=== PATIENT | male | born 1940 | race Caucasian/White ===

== ENCOUNTER 2016-10-20 05:54 | Inpatient (IN) | payer OTHER ==
[2016-10-20] MEDS ORDERED: ceFAZolin 2 GM/DEXTROSE 100 ML IV ONE (06:00)
[2016-10-20] MEDS ORDERED: BUPIVACAINE/EPI 0.25% 30 ML SDV ONE (06:43)
[2016-10-20] MEDS ORDERED: BACITRACIN 50,000 UNITS/10 ML SYR IRR ONE (06:43)
[2016-10-20] MEDS ORDERED: THROMBIN (RECOMBINANT) 20,000 UNIT VIAL TP ONE (06:43)
[2016-10-20] MEDS ORDERED: HYDROmorphONE/DILAUDID 2 MG/ML INJ ONE (07:32)
[2016-10-20] MEDS ORDERED: PROPOFOL 200 MG/20 ML VIAL ONE (07:32)
[2016-10-20] MEDS ORDERED: SUCCINYLCHOLINE CHLORIDE*ANESTHESIA ONLY*200 MG/10 ML SYR IVP ONE (07:35)
[2016-10-20] MEDS ORDERED: LR 1,000 ML IV ONE (07:39)
[2016-10-20] MEDS ORDERED: LIDOCAINE 1% 5 ML SDV ID PRN (07:39)
[2016-10-20] MEDS ORDERED: SKIN ADHESIVE (DERMABOND) 1 EACH TP ONE ×3 (07:57→11:34)
[2016-10-20] MEDS ORDERED: PHENYLEPHRINE HCL 100 MCG/ML SYR ONE (08:01)
[2016-10-20] MEDS ORDERED: KETAMINE 100 MG/10 ML SYR IVP ONE (08:13)
[2016-10-20] MEDS ORDERED: LIDOCAINE 2% 5 ML SDV ONE (08:29)
[2016-10-20] MEDS ORDERED: ONDANSETRON 4 MG/2 ML VIAL ONE (09:17)
[2016-10-20] MEDS ORDERED: morphINE PF 5 MG/10 ML INJ ONE (09:32)
[2016-10-20] MEDS ORDERED: NON-FORMULARY NEW DRUG (Ranitidine Hcl [Zantac 75] 75 MG) PO PRN (11:54)
[2016-10-20] MEDS ORDERED: DIAZEPAM 10 MG/2 ML SYR IVP PRN (12:03)
[2016-10-20] MEDS ORDERED: MAGNESIUM HYDROXIDE 30 ML UDCUP PO PRN (12:03)
[2016-10-20] MEDS ORDERED: HYDROmorphONE/DILAUDID 1 MG/ML SYR IVP PRN (12:03)
[2016-10-20] MEDS ORDERED: PROMETHAZINE HCL 25 MG/ML INJ IVP PRN (12:03)
[2016-10-20] MEDS ORDERED: ONDANSETRON DISINTEGRATING 4 MG TAB PO PRN (12:03)
[2016-10-20] MEDS ORDERED: LACTULOSE 20 GM/30 ML UDCUP PO PRN (12:03)
[2016-10-20] MEDS ORDERED: POLYETHYLENE GLYCOL 3350 17 GM PKT PO PRN (12:03)
[2016-10-20] MEDS ORDERED: D50W 25 GM/50 ML SYR IVP PRN (12:03)
[2016-10-20] MEDS ORDERED: diphenhydrAMINE 25 MG CAP PO PRN (12:03)
[2016-10-20] MEDS ORDERED: ONDANSETRON 4 MG/2 ML VIAL IVP PRN (12:03)
--- NOTE | 2016-10-20 12:15 | POSTOPPROG ---
Post Op Note Date of Operation: 10/20/16 Surgeon: Esvin Cheung Manager Program: Cameron Walker PA-C Anesthesia: GET(General Endotracheal) Pre-op Diagnosis: lumbar scoliosis, degeneration, radiculopathy Post-op Diagnosis: same Indication: back pain, leg pain Procedure: L4-S1 TLIF and PSF with SCS removal Findings: Please see Dr Cheung's operative report Inf/Abcess present in the surg proc area at time of surgery?: No Depth: Organ Space EBL: 100-500 Complications: none Drains: Dominick Turk Specimen(s): SCS sent for gross pathology PA Addendum - Addendum .: S: Pt awake in PACU, denies pain O: Awake but sleepy NAD VSS MAEx4 Motor 5/5 BUE/BLE +LT Incision dressed A: 76 yo M s/p SCS removal and right sided L4-S1 TLIF with L4-S1 Posterior Fusion P: PT/OT Pain management Brace when OOB Blood sugar checks and sliding scale ordered Post op xrays pending Duramorph given Follow ALFONSO output LISA Jeffers in AM Call NS with any issues
--- NOTE | 2016-10-20 13:58 | GOP ---
DATE OF OPERATION: 10/20/2016 SURGEON: Esvin Cheung MD CONTROLLER REPAIRER AND TESTER: Chapis Walker PA-C. ANESTHESIA: General. PREOPERATIVE DIAGNOSIS: 1. Lumbar scoliosis. 2. Lumbar spondylosis, L4 through S1, with right lower extremity radiculopathy. 3. History of prior spinal cord stimulator placement. POSTOPERATIVE DIAGNOSIS: 1. Lumbar scoliosis. 2. Lumbar spondylosis, L4 through S1, with right lower extremity radiculopathy. 3. History of prior spinal cord stimulator placement. PROCEDURE PERFORMED: 1. Spinal cord stimulator generator and thoracic intraspinal percutaneous lead removal. 2. Posterior arthrodesis with approach to L4, L5, S1. 3. Posterolateral fusion with bilateral pedicle screw placement into L4, L5, S1 from the Howbuyra system. 4. Right-sided L4-L5 hemilaminotomy with mesial facetectomy, foraminotomy, nerve root decompression. 5. Right-sided L5-S1 hemilaminotomy with mesial facetectomy, foraminotomy, nerve root decompression. 6. Right-sided L4-L5 transforaminal lumbar interbody fusion with an 8 x 26 mm Capstone titanium coated PEEK cage with morselized autograft and allograft. 7. Right-sided L5-S1 transforaminal lumbar interbody fusion with an 8 x 26 mm Capstone titanium coated PEEK cage with morselized autograft and allograft. 8. Posterolateral fusion on the left between L4 and S1 with morselized autograft and allograft. 9. Use of intraoperative 3D Stealth navigation. 10. Use of intraoperative fluoroscopy, less than 1 hour physician time. 11. Use of neuromonitoring. 12. Use of operating microscope. 13. Injection of preservative-free intrathecal narcotics. FINDINGS: per imaging SPECIMENS: The spinal cord stimulator system was sent to Pathology for gross specimen analysis. ESTIMATED BLOOD LOSS: 200 mL. INDICATIONS: The patient is a 76-year-old gentleman with known history of lumbar spinal pain and radiculopathy for which he had a spinal cord stimulator placed. He no longer uses the spinal cord stimulator and he had evidence of lumbar scoliosis with severe lateral recess foraminal stenosis on the right at L4-5 and L5-S1. After failing nonoperative intervention and after discussion of the risks, benefits, and treatment alternatives, we decided to proceed forth with surgery as described above. DESCRIPTION OF PROCEDURE: The patient was brought to the operating theater and underwent general endotracheal anesthesia without complications. He had Venodynes, VIGNESH hose, and a Jeffers catheter placed. He was flipped prone onto the Dominick table and all bony prominences inspected and padded. The lower lumbar region was prepped and draped in the usual sterile surgical fashion. A time-out was completed per protocol, and the patient received antibiotics within 1 hour of incision, Ancef. Using lateral fluoroscopy and a spinal needle, we picked our entry point to the L4 through S1 levels, and this was marked in midline. We also marked out the left-sided implantable pulse generator for his spinal cord stimulator over the left buttock. All incisions were infiltrated with Marcaine with epinephrine. We first focused our attention to the implantable pulse generator, which we opened sharply with a scalpel blade. Using the monopolar, the incision was then taken down through subcutaneous tissues to the level of the implantable pulse generator, which was then identified and removed from its subcutaneous pocket. At this point, we cut the leads from the battery pack and passed the IPG off the field. We then irrigated this wound copiously with bacitracin irrigation and closed it in multiple layers using Vicryl sutures for the deep layers and Dermabond for the skin. We moved to the central midline lumbar incision, which then was taken down initially with a scalpel blade. Using the monopolar, the incision was then taken down through the lumbodorsal fascia and subperiosteal dissection continued. We immediately encountered the subcutaneous spinal cord stimulator implantable leads. We removed the soft tissue stay sutures for the leads and subsequently removed the percutaneous leads from the intraspinal canal as well as from the implantable pulse generator space and pulled them off and passed them all off the field. The entire system appeared to be intact. We sent this off to Pathology for gross specimen analysis. We continued with the subperiosteal dissection out to the transverse processes of L4, L5, and S1. Deep retractors were placed to maintain our exposure and we confirmed our level using lateral fluoroscopy. We attached the 3D Stealth navigation clamp to the spinous process of L5 and completed a 3D Stealth navigation spin. Using 3D Stealth navigation, we placed the airplane patrol pilot holes for the bilateral pedicle screws into L4, L5, and S1. All holes were manually palpated with no evidence of any cortical breaches. We then placed 6.5 mm screws bilaterally into L4, L5, S1 from the Medtronic Solera system. Another 3D Stealth navigation spin demonstrated the right L5 screw was somewhat medial. We removed this screw and palpated with no evidence of any cortical breaches. We then replaced the right-sided L5 screw. The microscope was brought into the field to assist with microscopic dissection and to maintain illumination and magnification. Using a combination of the bur tip on the drill, Kerrison punches, and Leksell rongeur, we completed our right- sided L4-L5 and right-sided L5-S1 hemilaminotomies with mesial facetectomies and foraminotomies. We moved up to L4-5 first, where we distracted the interspace and completed a right-sided L4-5 diskectomy. We prepared the cartilaginous endplates and measured the interbody space. We placed an 8 x 26 mm titanium coated PEEK cage filled with morselized autograft and allograft anteriorly toward the midline. We packed additional morselized autograft in the disk space for interbody fusion. We let down distraction. We then moved down to the right-sided L5-S1, where we completed a right-sided L5-S1 diskectomy. We prepared the cartilaginous endplates and measured the interbody space. We placed an 8 x 26 mm titanium coated PEEK cage filled with morselized autograft and allograft anteriorly toward the midline. We packed additional morselized autograft into the disk space for interbody fusion. At this point, we decorticated the bone on the left side between L4 and S1 and irrigated copiously with bacitracin irrigation. We placed 2 lordotic rods into the heads of the screws between L4 and S1 and secured them down with cap screws which were tightened per the power generation engineer's setting. We injected preservative- free intrathecal narcotics. We placed morselized autograft and allograft on the left side between L4 and S1 for the posterolateral fusion. We placed a drain in the subfascial space and closed the wound in multiple layers including Vicryl sutures for the deep layers and Dermabond for the skin. The patient's wounds were dressed sterilely. He was then flipped supine onto the transfer cart, where he was awakened, extubated, and taken to the recovery room in stable condition. There were no complications and no noted changes on neuromonitoring throughout the procedure. COMPLICATIONS: None. /[id number]/MODL MTDD
[2016-10-20] MEDS: NS W/ 20 KCl/L 1,000 ML IV SCH (15:12)
[2016-10-20] MEDS: INSULIN REGULAR HUMAN 100 UNIT/ML SC SCH ×2 (17:44→22:13)
[2016-10-20] MEDS ORDERED: FAMOTIDINE 20 MG/NACL 50 ML IV SCH (21:00)
[2016-10-20] MEDS: DOCUSATE SODIUM 100 MG CAP PO SCH (21:22)
[2016-10-20] MEDS: NORTRIPTYLINE HCL 50 MG CAP PO SCH (22:12)
[2016-10-20] MEDS: INSULIN GLARGINE 100 UNITS/ML SYRINGE SC SCH (22:13)
[2016-10-20] MEDS: FAMOTIDINE 20 MG TAB PO SCH (22:13)
[2016-10-20] MEDS: SENNOSIDES/DOCUSATE SODIUM TAB PO SCH (22:14)
[2016-10-20] MEDS: HYDROCODONE/APAP 5/325 TAB PO PRN (22:19)
[2016-10-21] MEDS: DIAZEPAM 5 MG TAB PO PRN ×2 (02:35→20:03)
[2016-10-21] MEDS: oxyCODONE IR 5 MG TAB PO PRN ×3 (02:36→13:57)
[2016-10-21] MEDS: NS W/ 20 KCl/L 1,000 ML IV SCH (02:40)
[2016-10-21 06:00] LABS: % IMMATURE GRANULYOCYTES 0.5 % (0.0-1.1); ABSOLUTE IMMATURE GRANULOCYTES 0.04 10^3/uL (0.00-0.10); ADD DIFF? NO; ADD MORPH? NO; ADD SCAN? NO; ATYPICAL LYMPHOCYTE FLAG 0 (0-99); FRAGMENT RBC FLAG 0 (0-99); HEMATOCRIT 32.3 % (40.0-51.0); HEMOGLOBIN 10.3 g/dL (13.7-17.5); LEFT SHIFT FLG 0 (0-99); LIPEMIA HEMOLYSIS FLAG 80 (0-99); MEAN CELL HEMOGLOBIN 30.8 pg (27.9-34.1); MEAN CELL HEMOGLOBIN CONCENTR. 31.9 g/dL (32.4-36.7); MEAN CELL VOLUME 96.7 fL (81.5-99.8); PLATELET CLUMPS FLAG 30 (0-99); PLATELET COUNT 176 10^3/uL (150-400); RED BLOOD CELL COUNT 3.34 10^6/uL (4.40-6.38); RED CELL DISTRIBUTION WIDTH 13.3 % (11.5-15.2)
[2016-10-21 06:10] LABS: ANION GAP 5 mEq/L (8-16); CALCIUM 7.9 mg/dL (8.5-10.4); CARBON DIOXIDE 25 mEq/l (22-31); CHLORIDE 105 mEq/L (97-110); CREATININE 1.1 mg/dL (0.7-1.3); GLOMERULAR FILTRATION RATE > 60; GLUCOSE 153 mg/dL (70-100); SODIUM 135 mEq/L (134-144)
[2016-10-21] MEDS: LISINOPRIL 2.5 MG TAB PO SCH (07:56)
[2016-10-21] MEDS: ATORVASTATIN CALCIUM 10 MG TAB PO SCH (07:56)
[2016-10-21] MEDS: ACETAMINOPHEN 325 MG TAB PO PRN ×2 (07:56→13:57)
[2016-10-21] MEDS: DOCUSATE SODIUM 100 MG CAP PO SCH ×2 (07:57→20:04)
[2016-10-21] MEDS: ATENOLOL 50 MG TAB PO SCH (07:57)
[2016-10-21] MEDS: ENOXAPARIN 40 MG/0.4 ML SYR SC SCH (07:57)
[2016-10-21] MEDS: FAMOTIDINE 20 MG TAB PO SCH ×2 (07:57→20:04)
--- NOTE | 2016-10-21 08:00 | NEUSURGPN ---
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 Eating/drinking and voiding. No caraballo/neck/chest/abd or gu complaints. No f/c/n/v/d. Objective: AAO x 3, PERRLA/EOMI, no droop CN 2-12 grossly intact +lt touch 5/5 BUE/BLE = CDI ALFONSO in place Neuro Check Frequency: per routine Urinary Catheter in Place: No Catheter Insertion Date: 10/20/16 - Physician Discussed Patient with DrLo: Jonatan Neurosurgery Physical Exam - Vitals, I&O, Labs I and O 10/20/16 10/21/16 10/22/16 05:59 05:59 05:59 Intake Total 3500 Output Total 1685 Balance 1815 Weight 81.647 kg Intake: Oral (ml) 600 IV Intake (ml) 2900 Output: Urine (ml) 1150 Catheter 1150 Estimated Blood Loss (ml) 200 Wound Drainage (ml) 335 Right Back Dominick Turk 335 Other: Number of Voids Catheter 1 Vital Signs Temp Pulse Resp BP Pulse Ox 37.0 C 94 14 115/60 96 10/21/16 07:29 10/21/16 07:29 10/21/16 07:29 10/21/16 07:29 10/21/16 07:29 Laboratory Results 10/21/16 05:25 10/21/16 05:25 ICD10 Worksheet Patient Problems: Problems Problem Status Onset Syncope Active
[2016-10-21] MEDS: SENNOSIDES/DOCUSATE SODIUM TAB PO SCH ×2 (08:56→20:03)
[2016-10-21] MEDS: INSULIN GLARGINE 100 UNITS/ML SYRINGE SC SCH ×2 (08:56→20:16)
[2016-10-21] MEDS: metFORMIN HCL 500 MG TAB PO SCH ×2 (08:56→18:00)
[2016-10-21] MEDS ORDERED: NON-FORMULARY NEW DRUG (Simvastatin [Zocor 20 Mg] 20 MG) PO SCH (09:00)
[2016-10-21] MEDS: INSULIN REGULAR HUMAN 100 UNIT/ML SC SCH ×4 (09:32→20:16)
[2016-10-21] MEDS: NORTRIPTYLINE HCL 50 MG CAP PO SCH (20:04)
[2016-10-22] MEDS: METHOCARBAMOL 750 MG TAB PO PRN (00:32)
[2016-10-22] MEDS: HYDROCODONE/APAP 5/325 TAB PO PRN ×3 (00:32→14:12)
--- NOTE | 2016-10-22 08:12 | NEUSURGPN ---
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 Eating/drinking and voiding. No f/c/n/v//d. No other new complaints or concerns. Objective: AAO x 3, PERRLA/EOMI, no droop CN 2-12 grossly intact +lt touch 5/5 BUE/BLE = CDI ALFONSO in place-to be removed Neuro Check Frequency: per routine Urinary Catheter in Place: No Catheter Insertion Date: 10/20/16 - Physician Discussed Patient with DrLo: Jonatan Neurosurgery Physical Exam - Vitals, I&O, Labs I and O 10/21/16 10/22/16 10/23/16 05:59 05:59 05:59 Intake Total 3500 350 Output Total 1685 1025 Balance 1815 -675 Weight 81.647 kg 81.647 kg Intake: Oral (ml) 600 350 IV Intake (ml) 2900 Output: Urine (ml) 1150 925 Catheter 1150 600 Toilet 325 Estimated Blood Loss (ml) 200 Wound Drainage (ml) 335 100 Right Back Dominick Turk 335 100 Other: Intake Quantity Yes Sufficient Output Comment Catheter straight cath by day shift, not charted Number of Voids Catheter 1 Bladder Scan Volume (ml) Catheter 500 Post Void Residual Scan Volume (ml) Toilet 178 Vital Signs Temp Pulse Resp BP Pulse Ox 36.7 C 105 H 18 122/59 H 94 10/22/16 00:29 10/22/16 00:29 10/22/16 00:29 10/22/16 00:29 10/22/16 00:29 Laboratory Results 10/21/16 05:25 10/21/16 05:25 ICD10 Worksheet Patient Problems: Problems Problem Status Onset Syncope Active
[2016-10-22] MEDS: ENOXAPARIN 40 MG/0.4 ML SYR SC SCH (08:20)
[2016-10-22] MEDS: ATORVASTATIN CALCIUM 10 MG TAB PO SCH (08:21)
[2016-10-22] MEDS: INSULIN REGULAR HUMAN 100 UNIT/ML SC SCH ×4 (08:21→20:55)
[2016-10-22] MEDS: metFORMIN HCL 500 MG TAB PO SCH ×2 (08:22→18:27)
[2016-10-22] MEDS: FAMOTIDINE 20 MG TAB PO SCH ×2 (08:22→20:54)
[2016-10-22] MEDS: SENNOSIDES/DOCUSATE SODIUM TAB PO SCH ×2 (08:22→20:56)
[2016-10-22] MEDS: DOCUSATE SODIUM 100 MG CAP PO SCH ×2 (08:22→20:54)
[2016-10-22] MEDS: ATENOLOL 50 MG TAB PO SCH (08:23)
[2016-10-22] MEDS: LISINOPRIL 2.5 MG TAB PO SCH (08:23)
[2016-10-22] MEDS: INSULIN GLARGINE 100 UNITS/ML SYRINGE SC SCH ×2 (08:37→20:54)
[2016-10-22] MEDS: ACETAMINOPHEN 325 MG TAB PO PRN (16:54)
[2016-10-22] MEDS: NORTRIPTYLINE HCL 50 MG CAP PO SCH (20:55)
[2016-10-22] MEDS: DIAZEPAM 5 MG TAB PO PRN (20:56)
[2016-10-23] MEDS: BISACODYL 10 MG SUPP PR PRN (06:10)
[2016-10-23] MEDS: INSULIN REGULAR HUMAN 100 UNIT/ML SC SCH ×4 (07:48→20:11)
[2016-10-23] MEDS: metFORMIN HCL 500 MG TAB PO SCH ×2 (08:42→18:47)
[2016-10-23] MEDS: ATORVASTATIN CALCIUM 10 MG TAB PO SCH (08:42)
[2016-10-23] MEDS: ATENOLOL 50 MG TAB PO SCH (08:42)
[2016-10-23] MEDS: SENNOSIDES/DOCUSATE SODIUM TAB PO SCH ×2 (08:43→20:10)
[2016-10-23] MEDS: FAMOTIDINE 20 MG TAB PO SCH ×2 (08:43→20:08)
[2016-10-23] MEDS: DOCUSATE SODIUM 100 MG CAP PO SCH ×2 (08:43→20:08)
[2016-10-23] MEDS: LISINOPRIL 2.5 MG TAB PO SCH (08:43)
[2016-10-23] MEDS: ENOXAPARIN 40 MG/0.4 ML SYR SC SCH (08:43)
[2016-10-23] MEDS: INSULIN GLARGINE 100 UNITS/ML SYRINGE SC SCH ×2 (08:44→20:08)
--- NOTE | 2016-10-23 11:11 | NEUSURGPN ---
Assessment/Plan: 76 yo M POD#3 s/p L4-S1 TLIF and PSF Plan: -increased confusion today. Hold Lucas and Valium. Getting CT head. checking labs. D/w Dr Cheung -urinary retention - straight cath/bladder scan. If persists, replace folry. -PT/OT-CPM -brace when OOB -post op xrays pending -ALFONSO drain was removed -Dispo: hold dc until confusion improves -call with any questions or concerns -D/w Dr Cheung Subjective: Pt resting in bed, c/o back pain. Objective: Awake and alert Difficulty hearing MAEx4 Follows all commands Motor 5/5 BLE +LT Incision dressed Urinary Catheter in Place: No Catheter Insertion Date: 10/20/16 - Physician Discussed Patient with : Jonatan Neurosurgery Physical Exam - Vitals, I&O, Labs I and O 10/22/16 10/23/16 10/24/16 05:59 05:59 05:59 Intake Total 350 100 Output Total 1025 450 Balance -675 100 -450 Weight 81.647 kg Intake: Oral (ml) 350 100 Output: Urine (ml) 925 450 Catheter 600 Toilet 325 450 Wound Drainage (ml) 100 Right Back Dominick Turk 100 Other: Intake Quantity Yes Yes Sufficient Output Comment Catheter straight cath by day shift, not charted Number of Voids Toilet 1 1 Bladder Scan Volume (ml) Catheter 500 Toilet 859 Post Void Residual Scan Volume (ml) Toilet 178 Vital Signs Temp Pulse Resp BP Pulse Ox 36.6 C 106 H 16 124/65 H 95 10/23/16 07:28 10/23/16 07:28 10/23/16 07:28 10/23/16 07:28 10/23/16 07:28 Laboratory Results 10/21/16 05:25 10/21/16 05:25 ICD10 Worksheet Patient Problems: Problems Problem Status Onset Syncope Active
[2016-10-23 11:56] LABS: COLOR YELLOW; LEUKOCYTE ESTERASE,URINE NEGATIVE (NEGATIVE); NITRITE,URINE POSITIVE (NEGATIVE)
[2016-10-23 12:05] LABS: RBC,URINE NONE SEEN /hpf (0-3)
[2016-10-23 12:43] LABS: HEMOGLOBIN 10.8 g/dL (13.7-17.5); MEAN CELL HEMOGLOBIN 31.6 pg (27.9-34.1); MEAN CELL HEMOGLOBIN CONCENTR. 33.8 g/dL (32.4-36.7); MEAN CELL VOLUME 93.6 fL (81.5-99.8); RED BLOOD CELL COUNT 3.42 10^6/uL (4.40-6.38)
[2016-10-23 13:51] LABS: ANION GAP 8 mEq/L (8-16); CALCIUM 8.7 mg/dL (8.5-10.4); CARBON DIOXIDE 24 mEq/l (22-31); CHLORIDE 100 mEq/L (97-110); CREATININE 1.1 mg/dL (0.7-1.3); GLOMERULAR FILTRATION RATE > 60; GLUCOSE 139 mg/dL (70-100); POTASSIUM 4.7 mEq/L (3.5-5.2); SODIUM 132 mEq/L (134-144)
--- NOTE | 2016-10-23 17:02 | PDGENHP ---
History and Physical History and Physical: HISTORY AND PHYSICAL CC: I am asked by Dr. Jabari Newton to evaluate and assist in the care of this patient with Postoperative confusion HISTORY: the patient himself at this point is quite disoriented and delusional and unable really to focus on the questions I am asking him, he really in fact does not know where he is and has no idea that he has had a surgery for that we are here for medical reasons. He denies however feeling uncomfortable in any way. I am really unable to get any other specific medical history from the patient. Patient's is at the bedside. She has been here all day with him. She says that he is quite disoriented has no idea where he is, yells and screams at her in the nurses which is quite unusual for him, has not eaten anything and will not consider eating anything, pulls at all the medical devices attached to him constantly, tries to get out of bed. He apparently has had trouble sleeping last couple nights and has been given some benzodiazepine. The states that he has never had an episode like this in the past. He has had 2 prior minor surgeries including a toe surgery and elected remain on surgery neither of which had long anesthesia neither which had any confusion at all afterwards. At home she says he has occasional word-finding difficulty but really no other memory or confusion issues. There is no history of mental health disorder and no history of head injury. He has not had any strokes and does not have Parkinson's disease or any other tremor related illness. aside from his back problems he was healthy prior to this illness with no fevers or other infectious symptoms. ROS: A comprehensive 10 system review revealed no other significant findings But is severely compromised by the patient's confusion PAST MEDICAL HISTORY: lumbar spine disease with chronic pain and previous lumbar implant Diabetes Hypertension Hyperlipidemia FAMILY MEDICAL HISTORY: no significant dementia is or mental health illnesses SOCIAL HISTORY: and lives with his , does not have any significant alcohol use or tobacco He is originally from [place] but has been in this country for many years. MEDICATIONS: The patients list has been reconciled by our clinical pharmacist in the EMR. I have reviewed the list and ordered appropriate medicines. PHYSICAL EXAMINATION: Vital Signs: He has a temperature 37.8degrees this afternoon and temperature of 37.9degrees last evening otherwise he has had normal temperatures. His vital signs are otherwise normal. Examination: General: alert, And interacts reasonably well, but is clearly severely disoriented. He has absolutely no idea where he is does not recall that he has had a surgery. He is not able to recognize that I am a physician. Does recognize his but will not tell me her name or his name. He has no idea what day month or year it is. He is unable to keep focus on a conversation. During my examination he pulls at his blankets and clothes, his IV tubing, his oxygen tubing. He does not have tremor, does not appear to be hallucinating that I can tell. For all of this he is reasonably relaxed. He does for seem fairly suspicious about my visit with him however. He has normal speech/language , normal wringer and setter, no focal weakness. The rest of the neurologic exam is difficult due to his inability to participate Skin: warm, dry, good color, no rash HEENT: normal Neck: no mass or jvd Resps: relaxed Lungs: clear breath sounds though he will not take a deep breath for me Heart: regular, no murmur Abdomen: soft, nondistended, nontender, +BS, no mass Upper Extremities: normal Lower Extremities: no edema, warm No Bleeding or bruising IV site: looks normal LABORATORY DATA: white blood cell count is a significantly increased today compared to 2 days ago with predominance of neutrophils Sodium is slightly low at 132 the rest of the basic metabolic panel unremarkable ; his sugars have been reasonable range so far RADIOLOGY STUDIES: there are no chest x-ray studies done so far here Head CT scan is done that today showing on my review of the images atrophy but nothing acute ASSESSMENT: - POSTOPERATIVE DELIRIUM, MULTIFACTORIAL ETIOLOGY - LOW-GRADE FEVER UNCERTAIN ETIOLOGY, LIKELY PRIMARILY DUE TO ATELECTASIS, RECUMBENCY, AND OTHER ISSUES RELATED TO HIS SURGERY BUT WILL WATCH FOR ANY SIGNS OF INFECTION -DIABETES MELLITUS WITH GOOD CONTROL OVERALL SO FAR -STATUS POST COMPLEX LUMBAR SPINE SURGERY, WITH NO OTHER COMPLICATIONS AT THIS POINT In terms of medications he has had really not much more pain medicine here than he typically got at home prior to his surgery. He has been getting some benzodiazepines at night and I think this is probably a contributing factor. Other factors include constipation, lack of oral intake, anesthesia effects, low -grade fever, unfamiliar environment and people, etc PLANS: -avoid sedating medicines as able -I will discontinue his benzodiazepines at this point I would recommend not using those -I have talked to his in a nursing staff to encourage food intake, mobilization, keeping the current all open during the daytime, making sure we maintain good pain management -Bowel regimen will be started as he has had no bowel movement here so far that I can tell per his -I will follow his electrolytes closely but so far this does not appear to be much of an issue. -His urinalysis looks good I will check a chest x-ray to make sure there is nothing there -If he has more significant fevers or if they persist will get blood cultures though my suspicion for significant infection at this point is low - I will continue to follow his blood sugars here, they have been in good range so far I have reviewed the patient's past medical records as part of this assessment, including
[2016-10-23] MEDS: NORTRIPTYLINE HCL 50 MG CAP PO SCH (20:09)
[2016-10-23] MEDS: MELATONIN 3 MG TAB PO SCH (20:09)
[2016-10-23] MEDS: ACETAMINOPHEN 325 MG TAB PO PRN (20:16)
[2016-10-24] MEDS: BISACODYL 10 MG SUPP PR PRN (05:41)
[2016-10-24] MEDS: INSULIN GLARGINE 100 UNITS/ML SYRINGE SC SCH ×2 (08:20→21:12)
[2016-10-24] MEDS: ENOXAPARIN 40 MG/0.4 ML SYR SC SCH (08:20)
[2016-10-24] MEDS: DOCUSATE SODIUM 100 MG CAP PO SCH ×2 (08:20→21:11)
[2016-10-24] MEDS: SENNOSIDES/DOCUSATE SODIUM TAB PO SCH ×2 (08:20→21:14)
[2016-10-24] MEDS: FAMOTIDINE 20 MG TAB PO SCH ×2 (08:20→21:12)
[2016-10-24] MEDS: LISINOPRIL 2.5 MG TAB PO SCH (08:21)
[2016-10-24] MEDS: ATORVASTATIN CALCIUM 10 MG TAB PO SCH (08:21)
[2016-10-24] MEDS: ATENOLOL 50 MG TAB PO SCH (08:21)
[2016-10-24] MEDS: metFORMIN HCL 500 MG TAB PO SCH ×2 (08:21→17:45)
--- NOTE | 2016-10-24 09:31 | SOAPPROG ---
SOAP Progress Note Assessment/Plan: Assessment: 76 yo M POD #4 L4-S1 TLIF Plan: neuro: stable but confusion last few days delerioum; appreciate IM helping with medical issues urinary retention: no evidence of UTI on UA, straight cath if needed PT/OT LSO brace when out of bed please call with neuro changes discussed with Dr Ruiz 10/24/16 09:28 Subjective: continued back pain, patient denies leg pain. Objective: Vital Signs Temp Pulse Resp BP Pulse Ox 37.7 C 101 H 16 139/68 H 95 10/24/16 07:44 10/24/16 08:21 10/24/16 07:44 10/24/16 08:21 10/24/16 07:44 Laboratory Results 10/23/16 12:36 10/23/16 12:36 10/23/16 10/24/16 10/25/16 05:59 05:59 05:59 Intake Total 100 700 Output Total 2100 Balance 100 -1400 Awake, confused, does not know month/year +FC PERRL, EOMI, no facial droop 5/5 + light touch C/D/I ICD10 Worksheet Patient Problems: Problems Problem Status Onset Syncope Active
[2016-10-24] MEDS: INSULIN REGULAR HUMAN 100 UNIT/ML SC SCH ×4 (09:51→21:19)
--- NOTE | 2016-10-24 10:30 | HOSPPROG ---
Hospitalist Progress Note Assessment/Plan: DIAGNOSES: - POSTOPERATIVE DELIRIUM, MULTIFACTORIAL ETIOLOGY - LOW-GRADE FEVER UNCERTAIN ETIOLOGY, LIKELY PRIMARILY DUE TO ATELECTASIS, RECUMBENCY, AND OTHER ISSUES RELATED TO HIS SURGERY BUT WILL WATCH FOR ANY SIGNS OF INFECTION - URINARY RETENTION -DIABETES MELLITUS WITH GOOD CONTROL OVERALL SO FAR -STATUS POST COMPLEX LUMBAR SPINE SURGERY, WITH NO OTHER COMPLICATIONS AT THIS POINT PLANS: -Continue delirium prevention and treatment measures - scheduled bladder voiding side bedside commode; for now will avoid Jeffers catheter is able SUBJECTIVE: -the patient is still very delirious and unable really to describe symptoms but he does deny at any breathing problems. At 1 point he does admit to some back pain but will not discuss it -nurses have noted that he has had urinary retention and has had 2 straight caths with 900 mL urine in the last 24 hours. his has been present for both of those episodes and she has not noticed any improvement in his demeanor or confusion as his bladder has been emptied OBJECTIVE Vitals reviewed: T-max 37.7degrees, blood pressure is normal, pulse mostly in the 90s occasionally just above 100 Exam: alert talkative, remains very disoriented and delirious, a bit less agitated than yesterday, no tremor or during my exams so far skin warm dry color ok resps not labored lungs clear BSs heart regular abd soft nondistended nontender, bowel sounds present limbs warm, no edema iv site ok chest x-ray, single view, my interpretation of images: There is some decreased inspiratory volume with some atelectasis but no infiltrates or effusions . Laboratory data: Sugars remain in good range Objective: Vital Signs Temp Pulse Resp BP Pulse Ox 37.7 C 101 H 16 139/68 H 95 10/24/16 07:44 10/24/16 08:21 10/24/16 07:44 10/24/16 08:21 10/24/16 07:44 Laboratory Results 10/23/16 12:36 10/23/16 12:36 10/23/16 10/24/16 10/25/16 06:59 06:59 06:59 Intake Total 100 700 Output Total 2100 Balance 100 -1400 ICD10 Worksheet Patient Problems: Problems Problem Status Onset Syncope Active
[2016-10-24 17:06] LABS: COLOR YELLOW; LEUKOCYTE ESTERASE,URINE NEGATIVE (NEGATIVE)
[2016-10-24 17:10] LABS: NITRITE,URINE POSITIVE (NEGATIVE)
[2016-10-24 17:20] LABS: MUCUS TRACE /lpf (NONE-1+)
[2016-10-24] MEDS: CEFEPIME HCL 1 GM in D5W 50 ML IV SCH ×2 (18:22→22:41)
[2016-10-24] MEDS: MELATONIN 3 MG TAB PO SCH (21:13)
[2016-10-24] MEDS: NORTRIPTYLINE HCL 50 MG CAP PO SCH (21:13)
[2016-10-24] MEDS: ACETAMINOPHEN 325 MG TAB PO PRN (21:18)
[2016-10-25] MEDS: NS W/ 20 KCl/L 1,000 ML IV SCH (06:18)
[2016-10-25] MEDS ORDERED: Exenatide Microspheres [Bydureon] 2 MG SQ SCH (09:00)
[2016-10-25] MEDS: INSULIN GLARGINE 100 UNITS/ML SYRINGE SC SCH ×2 (09:18→21:23)
[2016-10-25] MEDS: FAMOTIDINE 20 MG TAB PO SCH ×2 (09:19→21:23)
[2016-10-25] MEDS: SENNOSIDES/DOCUSATE SODIUM TAB PO SCH ×2 (09:19→21:23)
[2016-10-25] MEDS: ATENOLOL 50 MG TAB PO SCH (09:19)
[2016-10-25] MEDS: LISINOPRIL 2.5 MG TAB PO SCH (09:19)
[2016-10-25] MEDS: ENOXAPARIN 40 MG/0.4 ML SYR SC SCH (09:20)
[2016-10-25] MEDS: ACETAMINOPHEN 325 MG TAB PO PRN ×2 (09:20→18:31)
[2016-10-25] MEDS: DOCUSATE SODIUM 100 MG CAP PO SCH ×2 (09:20→21:23)
[2016-10-25] MEDS: metFORMIN HCL 500 MG TAB PO SCH ×2 (09:20→17:47)
[2016-10-25] MEDS: ATORVASTATIN CALCIUM 10 MG TAB PO SCH (09:20)
[2016-10-25] MEDS: METHOCARBAMOL 750 MG TAB PO PRN ×2 (09:20→18:31)
[2016-10-25] MEDS: CEFEPIME HCL 1 GM in D5W 50 ML IV SCH (09:20)
[2016-10-25] MEDS: INSULIN REGULAR HUMAN 100 UNIT/ML SC SCH ×4 (10:07→21:09)
[2016-10-25 10:36] LABS: % IMMATURE GRANULYOCYTES 1.6 % (0.0-1.1); ABSOLUTE IMMATURE GRANULOCYTES 0.29 10^3/uL (0.00-0.10); ADD DIFF? NO; ADD MORPH? NO; ADD SCAN? NO; ATYPICAL LYMPHOCYTE FLAG 10 (0-99); FRAGMENT RBC FLAG 0 (0-99); HEMATOCRIT 30.1 % (40.0-51.0); HEMOGLOBIN 10.3 g/dL (13.7-17.5); LEFT SHIFT FLG 10 (0-99); LIPEMIA HEMOLYSIS FLAG 90 (0-99); MEAN CELL HEMOGLOBIN 31.3 pg (27.9-34.1); MEAN CELL HEMOGLOBIN CONCENTR. 34.2 g/dL (32.4-36.7); MEAN CELL VOLUME 91.5 fL (81.5-99.8); PLATELET CLUMPS FLAG 10 (0-99); PLATELET COUNT 239 10^3/uL (150-400); RED BLOOD CELL COUNT 3.29 10^6/uL (4.40-6.38); RED CELL DISTRIBUTION WIDTH 13.2 % (11.5-15.2)
--- NOTE | 2016-10-25 10:39 | SOAPPROG ---
SOAP Progress Note Assessment/Plan: Assessment: 76 yo M POD #5 L4-S1 TLIF Plan: neuro: stable and doing much better since yesterday :) Pseudomonas UTI: on maxipime, improved mentation delerium; appreciate IM helping with medical issues, improved with treatment of UTI PT/OT LSO brace when out of bed scd/gela/lovenox for dvt prophylaxis likely dc to [facility] tomorrow please call with neuro changes discussed with Dr Ruiz 10/24/16 09:28 10/25/16 10:37 Subjective: mild back pain, no leg pain, improved confusion. Objective: Vital Signs Temp Pulse Resp BP Pulse Ox 37.0 C 100 16 147/75 H 95 10/25/16 07:19 10/25/16 09:19 10/25/16 07:19 10/25/16 09:19 10/25/16 07:19 Microbiology 10/23/16 12:06 Urine Culture - Final Urine,Clean Catch Pseudomonas Aeruginosa 10/24/16 10/25/16 10/26/16 05:59 05:59 05:59 Intake Total 700 700 Output Total 2100 1650 Balance -1400 -950 AAOx4, +FC PERRL, EOMI, no facial droop 5/5 + light touch C/D/I ICD10 Worksheet Patient Problems: Problems Problem Status Onset Syncope Active
[2016-10-25 10:57] LABS: ANION GAP 11 mEq/L (8-16); CALCIUM 8.4 mg/dL (8.5-10.4); CARBON DIOXIDE 21 mEq/l (22-31); CHLORIDE 99 mEq/L (97-110); CREATININE 0.9 mg/dL (0.7-1.3); GLOMERULAR FILTRATION RATE > 60; GLUCOSE 182 mg/dL (70-100); POTASSIUM 4.2 mEq/L (3.5-5.2); SODIUM 131 mEq/L (134-144)
--- NOTE | 2016-10-25 11:58 | HOSPPROG ---
Hospitalist Progress Note Assessment/Plan: DIAGNOSES: -POSTOPERATIVE DELIRIUM, MULTIFACTORIAL ETIOLOGY -FEVER AND DELIRIUM,SUSPECT COMPLICATED UTI WITH MULTIPLE OTHER FACTORS ALSO CAUSATIVE INCLUDING ANESTHESIA, BENZODIAZEPINES, OTHERS -still has neg leukocyte esterase and only 10 wbcs in urine, so UTI not definite but enough evidence to at least treat as such (sensitive pseudomonas) -time of onset very difficult to determine; yu cath removed 10/21; delirium onset 10/23 and had no evidence of UTI on UA on that date though culture from that date growing pseudomonas -developed definite fever 10/24; delirium and fever better 10/25 on abx started evening 10/24 -if this is UTI, it is NOT CAUTI as yu was in < 48 hours first sign of symptoms 2 days after removal -URINARY RETENTION multifactorial -DIABETES MELLITUS WITH GOOD CONTROL OVERALL SO FAR -STATUS POST COMPLEX LUMBAR SPINE SURGERY, WITH NO OTHER COMPLICATIONS AT THIS POINT PLANS: -Continue general delirium prevention and treatment measures -scheduled bladder voiding bedside commode; for now will avoid Yu catheter is able -will change to more narrow antibiotic for possible pseumdomonas UTI -encourage eating and activity SUBJECTIVE: Patient states he feels well today with little pain; he is now able to converse normally and x-ray follow conversation enies chills sweats or shortness of breath or nausea and is eating better Has been ambulating with assistance with therapists per his nurse. OBJECTIVE Vitals reviewed: Some fever last evening but afebrile since then Exam: alert now quite lucid, oriented to time person place situation and can answer detailed complex questions accurately ; quite relaxed and appears comfortable skin warm dry color ok resps not labored lungs clear BSs heart regular abd soft nondistended nontender, bowel sounds present limbs warm, no edema iv site ok Laboratory data: repeat UA with 10-15 white blood cells however leukocyte esterase remains negative Urine culture: Pseudomonas intermediate sensitivity to meropenem but sensitive to other antibiotics tested Objective: Vital Signs Temp Pulse Resp BP Pulse Ox 36.4 C 94 16 95/70 L 94 10/25/16 11:24 10/25/16 11:24 10/25/16 11:24 10/25/16 11:24 10/25/16 11:24 Microbiology 10/23/16 12:06 Urine Culture - Final Urine,Clean Catch Pseudomonas Aeruginosa Laboratory Results 10/25/16 10:13 10/25/16 10:13 03/0410/25/16 10/26/16 06:59 06:59 06:59 Intake Total 700 700 Output Total 2100 8880 Balance -1400 -317 ICD10 Worksheet Patient Problems: Problems Problem Status Onset Syncope Active
[2016-10-25] MEDS: TAMSULOSIN HCL 0.4 MG CAP PO SCH (16:55)
[2016-10-25] MEDS: NORTRIPTYLINE HCL 50 MG CAP PO SCH (21:23)
[2016-10-25] MEDS: MELATONIN 3 MG TAB PO SCH (21:23)
[2016-10-26 00:34] VITALS: TEMP 98.2; O2SAT 94
[2016-10-26 05:53] LABS: ADD DIFF? YES; ADD MORPH? NO; ADD SCAN? NO; ATYPICAL LYMPHOCYTE FLAG 10 (0-99); FRAGMENT RBC FLAG 0 (0-99); HEMATOCRIT 29.9 % (40.0-51.0); LEFT SHIFT FLG 30 (0-99); LIPEMIA HEMOLYSIS FLAG 80 (0-99); MEAN CELL HEMOGLOBIN 30.5 pg (27.9-34.1); MEAN CELL HEMOGLOBIN CONCENTR. 33.4 g/dL (32.4-36.7); MEAN CELL VOLUME 91.2 fL (81.5-99.8); MEAN PLATELET VOLUME 10.1 fL (8.7-11.7); PLATELET CLUMPS FLAG 0 (0-99); PLATELET COUNT 266 10^3/uL (150-400); RED BLOOD CELL COUNT 3.28 10^6/uL (4.40-6.38); RED CELL DISTRIBUTION WIDTH 13.3 % (11.5-15.2)
[2016-10-26 06:04] LABS: ANION GAP 10 mEq/L (8-16); CALCIUM 8.3 mg/dL (8.5-10.4); CARBON DIOXIDE 22 mEq/l (22-31); CHLORIDE 100 mEq/L (97-110); CREATININE 0.9 mg/dL (0.7-1.3); GLOMERULAR FILTRATION RATE > 60; GLUCOSE 105 mg/dL (70-100); POTASSIUM 4.3 mEq/L (3.5-5.2); SODIUM 132 mEq/L (134-144)
[2016-10-26 06:32] LABS: POLYCHROMASIA 1+
[2016-10-26 06:33] LABS: PLATELET ESTIMATE ADEQUATE (ADEQ)
--- NOTE | 2016-10-26 07:29 | NEUSURGPN ---
Assessment/Plan: Assessment: 76 yo M POD #6 L4-S1 TLIF Plan: neuro: stable and doing much better since yesterday Pseudomonas UTI: on maxipime, improved mentation delerium; appreciate IM helping with medical issues, improved with treatment of UTI PT/OT LSO brace when out of bed scd/gela/lovenox for dvt prophylaxis likely dc [facility] today if urinating well and cleared by IM please call with neuro changes discussed with Dr Cheung Subjective: Pt resting in bed, remembers me from clinic. States he is still having trouble urinating. Objective: AAOx3 NAD VSS MAEx4 Motor 5/5 BLE Incisions cdi +LT Urinary Catheter in Place: No Catheter Insertion Date: 10/20/16 - Physician Discussed Patient with : [facility] Physical Exam - Vitals, I&O, Labs I and O 10/25/16 10/26/16 10/27/16 05:59 05:59 05:59 Intake Total 700 450 Output Total 1650 1025 200 Balance -950 -575 -200 Intake: Oral (ml) 550 450 IV Infused (ml) 150 Cefepime HCl 1 gm In D5w 50 50 ml @ 100 mls/hr IV Q12HRS KEE Rx#:[id number] NS W/ 20 KCl/L 1,000 ml @ 100 75 mls/hr IV CONT KEE Rx #:[id number] Output: Urine (ml) 1650 1025 200 Bedside Commode 100 325 Catheter 1550 700 Urinal 200 Other: Number of Voids Bedside Commode 1 Catheter 1 Number of Stools Bedside Commode 1 1 Bladder Scan Volume (ml) Bedside Commode 453 501 Catheter 460 Post Void Residual Scan Volume (ml) Bedside Commode 745 407 Catheter 645 Microbiology 10/23/16 12:06 Urine Culture - Final Urine,Clean Catch Pseudomonas Aeruginosa Vital Signs Temp Pulse Resp BP Pulse Ox 36.8 C 96 16 114/57 L 94 10/26/16 00:00 10/26/16 00:00 10/26/16 00:00 10/26/16 00:00 10/26/16 00:00 Laboratory Results 10/26/16 05:40 10/26/16 05:40 ICD10 Worksheet Patient Problems: Problems Problem Status Onset Syncope Active
[2016-10-26 08:17] VITALS: PULSE 97; RESP 14
[2016-10-26 08:30] VITALS: BP 104/64
[2016-10-26] MEDS: INSULIN GLARGINE 100 UNITS/ML SYRINGE SC SCH (08:32)
[2016-10-26] MEDS: DOCUSATE SODIUM 100 MG CAP PO SCH (08:33)
[2016-10-26] MEDS: ATORVASTATIN CALCIUM 10 MG TAB PO SCH (08:33)
[2016-10-26] MEDS: ENOXAPARIN 40 MG/0.4 ML SYR SC SCH (08:33)
[2016-10-26] MEDS: SENNOSIDES/DOCUSATE SODIUM TAB PO SCH (08:33)
[2016-10-26] MEDS: FAMOTIDINE 20 MG TAB PO SCH (08:33)
[2016-10-26] MEDS: metFORMIN HCL 500 MG TAB PO SCH ×2 (08:33→17:17)
[2016-10-26] MEDS: TAMSULOSIN HCL 0.4 MG CAP PO SCH (08:33)
[2016-10-26] MEDS: INSULIN REGULAR HUMAN 100 UNIT/ML SC SCH ×2 (08:34→12:29)
[2016-10-26] MEDS: ATENOLOL 50 MG TAB PO SCH (08:34)
[2016-10-26] MEDS: LISINOPRIL 2.5 MG TAB PO SCH (08:35)
[2016-10-26] MEDS: oxyCODONE IR 5 MG TAB PO PRN ×3 (09:03→17:17)
--- NOTE | 2016-10-26 10:51 | HOSPPROG ---
Hospitalist Progress Note Assessment/Plan: DIAGNOSES: -POSTOPERATIVE DELIRIUM, MULTIFACTORIAL ETIOLOGY -FEVER AND DELIRIUM,SUSPECT COMPLICATED UTI WITH MULTIPLE OTHER FACTORS ALSO CAUSATIVE INCLUDING ANESTHESIA, BENZODIAZEPINES, OTHERS -time of onset very difficult to determine; yu cath removed 10/21; delirium onset 10/23 and had no evidence of UTI on UA on that date though culture from that date growing pseudomonas -developed definite fever 10/24; delirium and fever better 10/25 on abx started evening 10/24 -if this is UTI, it is NOT CAUTI as yu was in < 48 hours first sign of symptoms 2 days after removal -URINARY RETENTION multifactorial (he now tells me of sxs strongly suggesting chronic BPH with frequent nocturia etc -DIABETES MELLITUS WITH GOOD CONTROL OVERALL SO FAR -STATUS POST COMPLEX LUMBAR SPINE SURGERY, WITH NO OTHER COMPLICATIONS AT THIS POINT RECOMMENDATIONS: -OK for DC to SNF from IM standpoint -contiue flomax indefinitely -continue levaquin for UTI thru 11/02 -continue to avoid sedating meds -if his urine voiding symptoms do not resolve in 2-3 weeks he should see a urologist (I discussed this w pt and ) SUBJECTIVE: Patient states he feels well today with little pain; no chills or sweats eating well some back pain urine frequency now Has been ambulating with assistance with therapists per his nurse. OBJECTIVE Vitals reviewed: no fever for > 24 hrs now Exam: alert now quite lucid, well oriented skin warm dry color ok resps not labored lungs clear BSs heart regular abd soft nondistended nontender, bowel sounds present limbs warm, no edema iv site ok Urine culture: Pseudomonas intermediate sensitivity to meropenem but sensitive to other antibiotics tested Objective: Vital Signs Temp Pulse Resp BP Pulse Ox 36.8 C 97 14 104/64 94 10/26/16 08:10 10/26/16 08:10 10/26/16 08:10 10/26/16 08:35 10/26/16 08:10 Microbiology 10/23/16 12:06 Urine Culture - Final Urine,Clean Catch Pseudomonas Aeruginosa Laboratory Results 10/26/16 05:40 10/26/16 05:40 10/25/16 10/26/16 10/27/16 06:59 06:59 06:59 Intake Total 700 450 Output Total 1650 1225 150 Balance -950 -775 -150 ICD10 Worksheet Patient Problems: Problems Problem Status Onset Syncope Active
--- NOTE | 2016-10-26 15:09 | PDIAF ---
- Diagnosis Code Status: Full Code - Medication Management Discharge Medications: Medications to Continue on Transfer ATENOLOL [Atenolol 50 mg] 50 mg PO DAILY 12/11/10 [Last Taken 10/20/16 05:00] Hydrocodone/APAP 5/325 [[place] 5/325 (*)] 1 - 2 tab PO Q4 PRN 03/18/13 [Last Taken 10/19/16 08:00] Simvastatin [Zocor 20 mg] 20 mg PO DAILY 03/18/13 [Last Taken 10/20/16 05:00] Docusate Sodium [Colace 100 MG (*)] 100 mg PO BID 09/16/16 [Last Taken 10/19/16 08:00] Exenatide Microspheres [Bydureon] 2 mg SQ LAO@0900 09/16/16 [Last Taken 10/18/16 10:00] Lisinopril [Zestril 2.5 mg (*)] 2.5 mg PO DAILY 09/16/16 [Last Taken 10/20/16 05 :00] Metformin HCl 1,000 mg PO BIDMEAL 09/16/16 [Last Taken 10/17/16] Nortriptyline HCl [Pamelor 50 mg (*)] 50 mg PO HS 09/16/16 [Last Taken 10/19/16 20:00] Ranitidine HCl [Zantac 75] 75 mg PO DAILY PRN 09/16/16 [Last Taken 10/19/16 19: 00] oxyCODONE CR [Oxycontin] 10 mg PO BID 09/16/16 [Last Taken 10/19/16 20:00] Insulin Glargine [Lantus 100 UNITS/ML (*)] 10 units SC BID 10/20/16 [Last Taken 10/19/16] Methocarbamol [Robaxin 750 mg (*)] 750 mg PO QID PRN #0 tab 10/26/16 [Last Taken Unknown] Tamsulosin HCl [Flomax 0.4 MG (*)] 0.4 mg PO DAILY #0 cap 10/26/16 [Last Taken Unknown] levOFLOXACIN [levAQUIN (*)] 750 mg PO DAILY 8 Days 10/26/16 [Last Taken Unknown] oxyCODONE IR [Oxycodone Ir (*)] 10 - 20 mg PO Q4 PRN #0 tab 03/06/17 [Last Taken Unknown] Optometrist Assistant Antibiotics: Continue Levofloxacin until 11/02 750mg daily Discharge Medications: Refer to the Discharge Home Medication list for PRN reason. PICC Care - Routine: N/A - Orders Services needed: Registered Nurse, Certified Canopy Stringer, Physical Therapy, Occupational Therapy Diet Recommendation: no restrictions on diet Diet Texture: Regular Texture Diet Jeffers: Not applicable Wound Care Instructions: change dressing daily with tape and gauze - Follow Up Care Current Providers and Referrals: Joaquim Nj MD [Primary Care Provider] - Esvin Cheung MD [Medical Doctor] -
[2016-10-26] MEDS: METHOCARBAMOL 750 MG TAB PO PRN (15:16)
== END 2016-10-26 17:20 | DRG 457 ==
LOC: F3N 05:54
PROVIDERS: ADMIT Neurological Surgery; ATTEND Neurological Surgery
PROC: 0SG30AJ Fusion of Lumbosacral Joint with Interbody Fusion Device, Posterior Approach, Anterior Column, Open Approach (ICD-10-PCS; principal; 2016-10-20 07:30)
PROC: 00PU0MZ Removal of Neurostimulator Lead from Spinal Canal, Open Approach (ICD-10-PCS; principal; 2016-10-20 07:30)
PROC: 0RT50ZZ Resection of Cervicothoracic Vertebral Disc, Open Approach (ICD-10-PCS; principal; 2016-10-20 07:30)
PROC: 0QB00ZZ Excision of Lumbar Vertebra, Open Approach (ICD-10-PCS; principal; 2016-10-20 07:30)
PROC: 0JPT0MZ Removal of Stimulator Generator from Trunk Subcutaneous Tissue and Fascia, Open Approach (ICD-10-PCS; principal; 2016-10-20 07:30)
PROC: 0SG00AJ Fusion of Lumbar Vertebral Joint with Interbody Fusion Device, Posterior Approach, Anterior Column, Open Approach (ICD-10-PCS; principal; 2016-10-20 07:30)
PROC: 00NY0ZZ Release Lumbar Spinal Cord, Open Approach (ICD-10-PCS; principal; 2016-10-20 07:30)
DX: M41.9 Scoliosis, unspecified (principal); M51.36 Other intervertebral disc degeneration, lumbar region; M43.16 Spondylolisthesis, lumbar region; M43.17 Spondylolisthesis, lumbosacral region; M48.06 Spinal stenosis, lumbar region; M48.07 Spinal stenosis, lumbosacral region; M54.16 Radiculopathy, lumbar region; M54.17 Radiculopathy, lumbosacral region; N39.0 Urinary tract infection, site not specified; B96.5 Pseudomonas (aeruginosa) (mallei) (pseudomallei) as the cause of diseases classified elsewhere; R33.9 Retention of urine, unspecified; R41.0 Disorientation, unspecified; E11.9 Type 2 diabetes mellitus without complications; I10 Essential (primary) hypertension; E78.5 Hyperlipidemia, unspecified
CPT/HCPCS: 97116-GP; 97161-GP; 97165-GO; 97530-GO; 97530-GP; 97535-GO; C1713; C1762; G8978-GP-CJ; G8979-GP-CI; G8987-GO-CL; G8988-GO-CJ; J0330; J0690; J0692; J1170; J1650; J1815; J1956; J2274; J2370; J2405; J2704

== ENCOUNTER → 2016-11-26 | Outpatient (CLI) | payer OTHER | LOC: FIMAGING 15:16 | PROVIDERS: ATTEND Physician Assistant | DX: Z09 Encounter for follow-up examination after completed treatment for conditions other than malignant neoplasm (principal); Z98.1 Arthrodesis status ==

== ENCOUNTER → 2017-01-08 | Outpatient (CLI) | payer OTHER | LOC: FLAB 10:09 → FIMAGING 10:11 | PROVIDERS: ATTEND Physician Assistant | DX: Z09 Encounter for follow-up examination after completed treatment for conditions other than malignant neoplasm (principal); Z98.1 Arthrodesis status ==

== ENCOUNTER → 2017-04-12 | Outpatient (CLI) | payer OTHER | LOC: FIMAGING 09:25 | PROVIDERS: ATTEND Physician Assistant | DX: M51.36 Other intervertebral disc degeneration, lumbar region (principal); Z98.1 Arthrodesis status ==

== ENCOUNTER 2017-07-26 15:06 | Emergency (ER) | payer OTHER ==
[2017-07-26 15:18] VITALS: RESP 18; TEMP 97.7
--- NOTE | 2017-07-26 17:08 | EDPHY ---
H & P Stated Complaint: L lower back/butt pain since Wednesday Time Seen by Provider: 07/26/17 17:07 HPI/ROS: HPI: This is a 77-year-old male presents Chief Complaint: L lower back/butt pain since Wednesday Location: Left lower back Quality: Sharp pain Duration: 2 days Signs and Symptoms: no radiation, no numbness, no weakness, no tingling, no incontinence, + decreased range of motion, no swelling, + pain, no injury Timing: Rapid onset, constant, worse with sitting and flexion activity Severity: 8/10 Context: History of chronic back pain, nerve stimulator in back, spinal fusion Sep [address] Cheung consisting of L4 to S1 facetectomy, foraminotomy, nerve root decompression, fusion of L4-L5, fusion L5-S1, fusion L4-S1 presents with waking up 2 days ago with left side lower back pain that is described as sharp and constant, nonradiating in nature, 8/10 at its worst, mild relief with OxyContin yesterday but not today. He called Dr. Curtis Diaz office today and they offered him an appointment in August. He reports that he is having increased pain and stiffness when trying to sit on the commode. No recent heavy lifting. Walks daily. He denies any urinary symptoms. No fever. Modifying Factors: OxyContin, transient relief Comment: ROS: see HPI Constitutional: No fever, no chills, no weight loss Eyes: No blurred vision Respiratory: No shortness of breath, no cough Cardiovascular: No chest pain Gastrointestinal: No nausea, no vomiting no diarrhea Genitourinary: No dysuria Extremities: No myalgias Neurologic: No weakness, no numbness Skin: No rashes Hematologic: No bruising, no bleeding MEDICAL/SURGICAL/SOCIAL HISTORY: Medical history: diabetes iddm.htn, chronic back pain Surgical history: nerve stimulator in back, spinal fusion Sep 2016 Social history: . Retired. CONSTITUTIONAL: Elderly white male, nontoxic in appearance, awake and alert, no obvious distress HEENT: Atraumatic and normocephalic. NECK: supple, No meningismus. Cardiovascular: Normal S1/S2, regular rate, regular rhythm, without murmur rub or gallop. PULMONARY/CHEST: Symmetrical and nontender. no crepitus. Clear to auscultation bilaterally. Good air movement. No accessory muscle usage. ABDOMEN: Soft, nondistended, nontender, no ecchymosis. PELVIC: no pain with rocking; bilateral hips flexion 125 degrees, extension 30 degrees, with no pain internal rotation and no pain external rotation. BACK: Well-healed midline incision noted lumbar area, No midline tenderness, no paraspinous spasm, + reproducible left-sided lumbar paraspinous muscle near L3-L5, deep tendon reflexes 2/2, mild pain with left straight leg raise, no pain with right straight leg raise, ambulatory with slow gait. No pain with extension. Pain with flexion to 20 and beyond. EXTREMITIES: 2/2 pulses, no deformities, no clubbing, no cyanosis or edema. Equal leg strength 5/5. Baseline neuropathy right foot. NEUROLOGICAL: no focal neuro deficits. GCS 15. Light touch sensation intact. SKIN: Warm and dry, no erythema. no rash. Good capillary refill. Source: Patient Exam Limitations: No limitations - Personal History Current Tetanus Diphtheria and Acellular Pertussis (TDAP): Yes - Medical/Surgical History Hx Asthma: No Hx Chronic Respiratory Disease: No Hx Diabetes: Yes Hx Cardiac Disease: Yes Hx Renal Disease: No Hx Cirrhosis: No Hx Alcoholism: No Hx HIV/AIDS: No Hx Splenectomy or Spleen Trauma: No Other PMH: diabetes iddm.htn, chronic back pain, nerve stimulator in back, spinal fusion Sep 2016 - Social History Smoking Status: Former smoker Constitutional: Initial Vital Signs Temperature (C) 36.5 C 07/26/17 15:14 Heart Rate 95 07/26/17 15:14 Respiratory Rate 18 07/26/17 15:14 Blood Pressure 135/81 H 07/26/17 15:14 O2 Sat (%) 96 07/26/17 15:14 O2 Delivery Mode Room Air Allergies/Adverse Reactions: No Known Allergies Allergy (Verified 07/26/17 15:13) Home Medications: Medication Instructions Recorded Hydrocodone/APAP 5/325 [[place] 1 - 2 tab PO Q4 PRN 03/18/13 5/325 (*)] Simvastatin [Zocor 20 mg] 20 mg PO DAILY 03/18/13 Lisinopril [Zestril 2.5 mg (*)] 2.5 mg PO DAILY 09/16/16 Nortriptyline HCl [Pamelor 50 mg 50 mg PO HS 09/16/16 (*)] Ranitidine HCl [Zantac 75] 75 mg PO DAILY PRN 09/16/16 metFORMIN HCL [Metformin HCl] 1,000 mg PO BIDMEAL 09/16/16 Insulin Glargine [Lantus 100 10 units SC BID 10/20/16 UNITS/ML (*)] oxyCODONE IR [Oxycodone Ir (*)] 10 - 20 mg PO Q4 PRN #0 tab 10/26/16 Diazepam [Valium 2 MG (*)] 2 mg PO Q8 #12 tab 07/26/17 Exenatide Microspheres [Bydureon 2 mg SQ 07/26/17 Pen] Lidocaine 5% [Lidoderm 5% Patch 1 ea TD DAILY #12 patch 07/26/17 (*)] Medical Decision Making - Diagnostics Imaging Results: Imaging Impressions Lumbar Spine CT 07/26/17 17:19 Impression: There is possibly an acute fracture coursing through a left lateral bridging osteophyte at L2-L3. Results called to Jennifer Mann. General information for patients regarding this examination can be found at [email or web address]. If you have questions or comments about this report, please contact me at (hospital) or [phone] (cell). ED Course/Re-evaluation: Urinalysis, IV medications, CT lumbar scan ordered Given IV Decadron, IV Toradol, IV Valium, Lidoderm patch No signs of neurovascular compromise/tenting of skin/compartment syndrome/ extremities and joints examined above and below area of concern and are neurovascularly intact. Reassessed patient who is able to get himself out of bed and ambulate around the room without difficulty. He reports that pain is improved. Discussed CT findings and case with Dr. Rose. He advises that this is a stable fracture, pain control, and that patient can call office in the morning to have follow-up up in the next 1-2 days. This patient was seen under the supervision of my secondary supervising physician. I evaluated care for this patient independently. Patient's presentation, labs/imaging, treatment and plan of care were discussed with secondary supervising physician. Differential Diagnosis: Back pain including but not limited to muscular pain, herniated disc, spine fracture, intra-abdominal causes and urinary tract infection. - Data Points Medications Given: Miscellaneous Information (Patch Removal) 1 ea TD DAILY21 KEE Stop: 01/22/18 20:59 Last Admin: 07/26/17 17:58 Dose: 1 ea Discontinued Medications Dexamethasone (Decadron Injection) 8 mg IVP EDNOW ONE Stop: 07/26/17 17:19 Last Admin: 07/26/17 17:47 Dose: 8 mg Diazepam (Valium Injection) 2.5 mg IVP EDNOW ONE Stop: 07/26/17 17:19 Last Admin: 07/26/17 17:47 Dose: 2.5 mg Ketorolac Tromethamine (Toradol) 15 mg IVP EDNOW ONE Stop: 07/26/17 17:19 Last Admin: 07/26/17 17:46 Dose: 15 mg Lidocaine (Lidoderm 5%) 1 ea TD EDNOW ONE Stop: 07/26/17 17:19 Last Admin: 07/26/17 17:47 Dose: 1 ea Departure - Departure Disposition: Home, Routine, Self-Care Clinical Impression: Lumbar back pain Fracture, vertebral, lumbar closed Qualifiers: Encounter type: initial encounter Lumbar vertebra fracture level: L3 Fracture morphology: other fracture Qualified Code(s): S32.038A - Other fracture of third lumbar vertebra, initial encounter for closed fracture Condition: Good Instructions: Acute Low Back Pain (ED), Vertebral Compression Fracture (ED) Additional Instructions: CT of the lumbar spine today shows a possible acute fracture coursing through the left lateral osteophyte at L2-L3. I discussed your case with Dr. Rose who is a partner of Dr. Cheung, who advises a this is a stable fracture and you need pain control. Please call the office tomorrow for a follow-up appointment in the next 1-2 days. Referrals: Esvin Cheung MD [Medical Doctor] - As per Instructions Prescriptions: Diazepam [Valium 2 MG (*)] 2 mg PO Q8 #12 tab Lidocaine 5% [Lidoderm 5% Patch (*)] 1 ea TD DAILY #12 patch
[2017-07-26] MEDS ORDERED: LIDOCAINE 5% 1 EA PATCH TD ONE (17:18)
[2017-07-26] MEDS ORDERED: KETOROLAC 15 MG/1 ML SDV IVP ONE (17:18)
[2017-07-26] MEDS ORDERED: DIAZEPAM 10 MG/2 ML SYR IVP ONE (17:18)
[2017-07-26] MEDS ORDERED: DEXAMETHASONE 4 MG/ML VIAL IVP ONE (17:18)
[2017-07-26 20:36] VITALS: BP 127/85; PULSE 90; O2SAT 95
[2017-07-26] MEDS ORDERED: PATCH REMOVAL 1 EA PATCH TD SCH (21:00)
== END 2017-07-26 20:35 | disposition home or self-care (01) ==
DX: M84.48XA Pathological fracture, other site, initial encounter for fracture (principal); I10 Essential (primary) hypertension; E11.9 Type 2 diabetes mellitus without complications; Z79.4 Long term (current) use of insulin; Z87.891 Personal history of nicotine dependence
CPT/HCPCS: 72131; 96374; 96375; 99285; J1100; J1885

== ENCOUNTER → 2017-09-27 | Outpatient (CLI) | payer OTHER | LOC: FIMAGING 10:57 | PROVIDERS: ATTEND Physician Assistant Surgical | DX: Z98.1 Arthrodesis status (principal) ==

== ENCOUNTER → 2018-10-18 | Outpatient (CLI) | payer OTHER | LOC: BMCIMAGING 08:45 | PROVIDERS: ATTEND Podiatrist Foot & Ankle Surgery | DX: M79.671 Pain in right foot (principal) ==